=== PATIENT | female | born 1975 | race Caucasian/White ===

== ENCOUNTER 2018-05-19 09:49 | Emergency (ER) | payer BC, SELFPAY ==
[2018-05-19 09:50] VITALS: BP 127/92; PULSE 81; RESP 18; TEMP 36.9; O2SAT 100; BMI 29.1
--- NOTE | 2018-05-19 10:03 | ED.RN ---
Addendum entered by Lia Marc 05/19/18 10:05: Original Note: on continuos control fof years. stopped in mar. intermittent light bleeding until 6 days ago started heavy bleeding with clots. consistently bleeding since changing pad every 2-3 hours
[2018-05-19 10:29] VITALS: BP 105/78; BP 109/69; BP 111/72; PULSE 68; PULSE 72; PULSE 76
[2018-05-19] MEDS: 0.9% Normal Saline 1,000 ML 1000 ML IV (10:34)
[2018-05-19 10:39] LABS: Absolute Lymphocyte Count 2.09 X10^3/ul (0.83-4.51); Absolute Neutrophil Count 3.8 X10^3/uL (2.0-7.7); Basophil# 0.03 X10^3/uL; Basophil% 0.4 % (0-1); Eosinophil# 0.33 X10^3/uL; Eosinophils% 4.9 % (0-5); Hematocrit 38.1 % (37-47); Hemoglobin 13.1 g/dl (12.0-15.0); Lymphocyte # 2.09 X10^3/ul (4.0); Lymphocyte % 30.8 % (19-41); Mean Corp Hgb Conc 34.4 g/gl (32-36); Mean Corpuscular Hgb 31.9 pg (27.0-32.0); Mean Corpuscular Volume 92.7 fL (81-99); Mean Platelet Vol. 9.2 fl (6.2-12.0); Monocyte# 0.48 X10^3/uL; Monocyte% 7.1 % (0-10); Neutrophil # 3.84 X10^3/uL (2.7-7.7); Neutrophil % 56.7 % (47-70); Platelet Count 236 K/mm3 (150-450); RBC Distribution Width CV 12.2 % (11.6-14.6); RBC Distribution Width SD 40.4 fl (35.1-43.9); Red Blood Count 4.11 M/mm3 (4.2-5.4); White Blood Count 6.8 K/mm3 (4.4-11.0)
[2018-05-19 10:40] LABS: POSITIVE COUNT NO; POSITIVE DIFFERENTIAL NO; POSITIVE MORPHOLOGY NO
[2018-05-19 11:03] LABS: Pregnancy, Serum, hCG Quali. NEGATIVE Negative (0-9 Nonpreg)
--- NOTE | 2018-05-19 11:13 | ED.VISSUMM ---
- ER Visit Summary Date of Service: 05/19/18 Chief Complaint: [Vaginal bleeding] History of Present Illness: The patient is a 42 F [presents the emergency department with vaginal bleeding for approximately 1 week. Patient states that she stopped taking her control in March which she had been on chronically. Patient states initially when she started bleeding a week ago was going for about a pad an hour and now she is going through a pad every 2-3 hours. Patient's passing some small clots. She denies any abdominal pain. She denies any dizziness. She denies weakness. Patient is . She denies recent illness. She denies urinary symptoms. Patient has an appointment with her LOCK TENDER but not till next week.] Physical Examination: [HEENT-PERRLA, EOMI. Cranial nerves II through XII grossly intact. TMs clear. Mucous membranes moist. No adenopathy. Cardiovascular-regular rate and rhythm without murmur or ectopy Lungs-clear to auscultation, chest wall stable without crepitus or subcu emphysema Abdomen-normoactive bowel sounds, soft, nontender, no rebound or rigidity, no peritoneal signs. Extremities-intact ?4, normal range of motion, normal pulses, atraumatic] Test Results: [Orthostatic vital signs were negative. CBC with differential was normal. HCG was negative.] Emergency Department Course and Treatment: [Patient received normal saline.] Treatment Plan: [Case was discussed with Dr.Steven Angel who asked that we start patient on Aygestin 5 mg twice daily for 1 month and have patient follow-up with his office] Disposition: [Discharged home in stable condition] Impression: [Dysfunctional uterine bleeding] This note was generated with [employer] dictation software. It may contain incorrect words, spelling, and punctuation that were not noted in review of the chart prior to signing ED Disposition - Plan for ED Patient: Chief Complaint: Vag Bleeding Referrals: Care Physician,No Primary [Primary Care Provider] -
--- NOTE | 2018-05-19 11:18 | ED.DCSUM_ITS ---
- ER Visit Summary Date of Service: 05/19/18 Chief Complaint: [Vaginal bleeding] History of Present Illness: The patient is a 42 F [presents the emergency department with vaginal bleeding for approximately 1 week. Patient states that she stopped taking her control in March which she had been on chr onically. Patient states initially when she started bleeding a week ago was going for about a pad an hour and now she is going through a pad every 2-3 hours. Patient's passing some small clots. She denies any abdominal pain. She denies any dizziness. She denies weakness. Patient is . She denies recent illness. She denies urinary symptoms. Patient has an appointment with her LAWN CARE SPECIALIST but not till next week.] Physical Examination: [HEENT-PERRLA, EOMI. Cranial nerves II through XII grossly intact. TMs clear. Mucous membranes moist. No adenopathy. Cardiovascular-regular rate and rhythm without murmur or ectopy Lungs-clear to auscultation, chest wall stable without crepitus or subcu emphysema Abdomen-normoactive bowel sounds, soft, nontender, no rebound or rigidity, no peritoneal signs. Extremities-intact ?4, normal range of motion, normal pulses, atraumatic] Test Results: [Orthostatic vital signs were negative. CBC with differential was normal. HCG was negative.] Emergency Department Course and Treatment: [Patient received normal saline.] Treatment Plan: [Case was discussed with Dr.Steven Angel who asked that we start patient on Aygestin 5 mg twice daily for 1 month and have patient follow-up with his office] Disposition: [Discharged home in stable condition] Impression: [Dysfunctional uterine bleeding] This note was generated with [employer] dictation software. It may contain incorrect words, spelling, and punctuation that were not noted in review of the chart prior to signing ED Disposition - Plan for ED Patient: Chief Complaint: Vag Bleeding Referrals: Care Physician,No Primary [Primary Care Provider] -
--- NOTE | 2018-05-19 11:20 | DCINST.ED_ITS ---
ED Disposition - Plan for ED Patient: Chief Complaint: Vag Bleeding Instructions: ED Bleed Irregular Vaginal Prescriptions: Norethindrone [Aygestin] 5 mg PO BID 5 Days #60 tab Referrals: Care Physician,No Primary [Primary Care Provider] - Additional Instructions: See your PIN DRAFTING MACHINE TENDER next week
[2018-05-19 11:34] VITALS: BP 104/59; PULSE 64; RESP 15; O2SAT 100
--- OUTSIDE RECORDS SUMMARY | 2018-07-05 12:20 | XMS RPT_ITS ---
:1975 Author Organization [facility] Care Team Providers Name Role Phone Ian Padron Admitting Unavailable Ian Padron Attending Unavailable No Doctor Assigned, Nodr Primary Care Unavailable KRZYSZTOF AGUILAR Attending Unavailable LILIANA DE LEON Referring Unavailable NO PRIMARY CARE, Primary Care Unavailable Isidro Gallagher Attending Unavailable Primay Care Physicia, No Primary Care Unavailable PROBLEMS PROBLEMS No Problem Records FoundPROCEDURES PROCEDURES No Procedure Records FoundRESULTS RESULTS DISCHARGE INSTRUCTION Observed: 05/19/2018 Status: F Source: [place] 11:20 AM [facility] REPOSITORY [facility] Medical Records Department [address] [place] [id number] Discharge Instruction 05/19/18 1118 MR#: [id number] Acct: [id number] Name: HUGO BAKER Rep #: [id number] : 1975 42 From: Isidro Gallagher DO PCP: Care Physician, No Primary Status: REG ER ED Disposition - Plan for ED Patient: Chief Complaint: Vag Bleeding Instructions: ED Bleed Irregular Vaginal Prescriptions: Norethindrone [Aygestin] 5 mg PO BID 5 Days #60 tab Referrals: Care Physician,No Primary [Primary Care Provider] - Additional Instructions: See your HEAD OF CYTOGENETICS next week What to do if you have Problems For any increased pain, shortness of breath, bleeding, nausea or vomiting, chest pain, or any unexpected problems, contact your Primary Care Provider. Call [facility] ([phone]) or report to the closest Emergency Room. Call 911 if necessary. 05/19/18 1120 <Electronically signed by Isidro Gallagher DO> Date Isidro Gallagher DO Cosigner Signature (If Indicated): Date CC: No Primary Care Physician EMERGENCY DEPARTMENT Observed: 05/19/2018 Status: F Source: [place] SUMMARY 11:18 AM [facility] REPOSITORY [facility] Medical Records Department [address] [place] [address] Emergency Department Summary 05/19/18 1113 MR#: [id number] Acct: [id number] Name: HUGO BAKER Rep #: [id number] : 1975 42 From: Isidro Gallagher DO PCP: Care Physician, No Primary Status: REG ER - ER Visit Summary Date of Service: 05/19/18 Chief Complaint: [Vaginal bleeding] History of Present Illness: The patient is a 42 F [presents the emergency department with vaginal bleeding for approximately 1 week. Patient states that she stopped taking her control in March which she had been on chronically. Patient states initially when she started bleeding a week ago was going for about a pad an hour and now she is going through a pad every 2-3 hours. Patient's passing some small clots. She denies any abdominal pain. She denies any dizziness. She denies weakness. Patient is . She denies recent illness. She denies urinary symptoms. Patient has an appointment with her HEAD OF CYTOGENETICS but not till next week.] Physical Examination: [HEENT-PERRLA, EOMI. Cranial nerves II through XII grossly intact. TMs clear. Mucous membranes moist. No adenopathy. Cardiovascular-regular rate and rhythm without murmur or ectopy Lungs-clear to auscultation, chest wall stable without crepitus or subcu emphysema Abdomen-normoactive bowel sounds, soft, nontender, no rebound or rigidity, no peritoneal signs. Extremities-intact 4, normal range of motion, normal pulses, atraumatic] Test Results: [Orthostatic vital signs were negative. CBC with differential was normal. HCG was negative.] Emergency Department Course and Treatment: [Patient received normal saline.] Treatment Plan: [Case was discussed with Dr.Steven Angel who asked that we start patient on Aygestin 5 mg twice daily for 1 month and have patient follow- up with his office] Disposition: [Discharged home in stable condition] Impression: [Dysfunctional uterine bleeding] This note was generated with [employer] software. It may contain incorrect words, spelling, and punctuation that were not noted in review of the chart prior to signing ED Disposition - Plan for ED Patient: Chief Complaint: Vag Bleeding Referrals: Care Physician,No Primary [Primary Care Provider] - What to do if you have Problems For any increased pain, shortness of breath, bleeding, nausea or vomiting, chest pain, or any unexpected problems, contact your Primary Care Provider. Call [facility] ([phone]) or report to the closest Emergency Room. Call 911 if necessary. 05/19/18 1118 <Electronically signed by Isidro Gallagher DO> Date Isidro Gallagher DO Cosigner Signature (If Indicated): Date CC: No Primary Care Physician CBC W/DIFF, AUTOMATED Collected: 05/19/2018 Status: F Source: [place] 10:15 AM [facility] REPOSITORY TYPE CODE TESTS RESULT OUT OF RANGE REFERENCE UNITS LAB L100.1000 4.4-11.0 K/mm3 Normal WBC 6.8 LAB L100.1200 4.2-5.4 M/mm3 Low RBC 4.11 LAB L100.1300 12.0-15.0 g/dl Normal HGB 13.1 LAB L100.1400 37-47 % Normal HCT 38.1 LAB L100.1500 81-99 fL Normal MCV 92.7 LAB L100.1600 27.0-32.0 pg Normal MCH 31.9 LAB L100.1700 32-36 g/gl Normal MCHC 34.4 LAB L100.1810 11.6-14.6 % Normal RDW CV 12.2 LAB L100.1820 35.1-43.9 fl Normal RDW SD 40.4 LAB L100.1900 150-450 K/mm3 Normal PLT 236 LAB L100.2000 6.2-12.0 fl Normal MPV 9.2 LAB L100.2100 47-70 % Normal NEUT% 56.7 LAB L100.2200 19-41 % Normal LY% 30.8 LAB L100.2300 0-10 % Normal MONO% 7.1 LAB L100.2400 0-5 % Normal EO% 4.9 LAB L100.2500 0-1 % Normal BASO% 0.4 LAB L100.2550 0.0-0.9 % Normal IM GRAN % 0.100 Result Comment: IG% - Immature Granulocytes (promyelocytes, myelocytes and metamyelocytes) > 1% indicates that a LEFT SHIFT is Present. LAB L100.2620 2.0-7.7 X10 3/uL Normal Absolute Neut 3.8 LAB L100.2720 0.83-4.51 X10 3/ul Normal Absolute Lymph 2.09 Performed By: #### L100.0100 #### [facility] [address] [place], [address] ,SERUM,HCG QUALI. Collected: Status: F Source: [place] 05/19/2018 10:15 AM [facility] REPOSITORY TYPE CODE TESTS RESULT OUT OF REFERENCE UNITS RANGE LAB L700.7000 0-9 Nonpreg Negative Normal HCGSQUAL NEGATIVE LAB L700.6700 =>Qualitative mIU/mL Normal HCG Qual < 1 triggr Performed By: #### L700.6800 #### [facility] [address] [place], [address] TYPE AND SCREEN Collected: 05/19/2018 Status: F Source: [place] 10:15 AM [facility] REPOSITORY Order Comment: Reason for Type AND Screen/Red Cells: HEMORRHAGE, VAGINAL TYPE CODE TESTS RESULT OUT OF RANGE REFERENCE UNITS LAB B10.0800 O Normal BLOOD TYPE GEL POSITIVE LAB B100.4000 Normal Antibody NEGATIVE Screen Performed By: #### B101.7450 #### [facility] [address] [place], [address] ALLERGIES ALLERGIES DATE TYPE / CODE NAME / CODE REACTION SEVERITY SOURCE 05/19/2018 Drug No Known Unknown [facility] Allergy/4160 Allergies/F00 [facility] [address]608(SNOMED [id number](RXNOR Repository CT) M) ENCOUNTERS ENCOUNTERS ADMIT/DISCHARGE ACCOUNT NUMBER ADMITTING ENCOUNTER LOCATION SOURCE CLASS 05/26/2018 [id number] Ambulatory Building:[facility] Repository 05/19/2018/05/19/20 [id number] Emergency [address] ding:ED Repository 02/01/2018/02/02/20 [id number] Ian Padron Ambulatory [place] [id number] [place] g:[facility] Repository PAYERS PAYERS ENCOUNTER GUARANTOR PAYER SUBSCRIBER SOURCE 05/26/2018 HUGO Primary HUGO [facility] HILDEBRANDDOB: Insurance:ANTHEMPolic HILDEBRANDDOB: Hospital [id number] y Number: [id number] Repository [facility] [id number] [place], [place] Date: [place], [place] [address]Sqj: [phone] (HP) 05/19/2018 HUGO L Primary HUGO L [place] [id number] Insurance:ANTHEMPolic [facility] y [place]: [id number] [id number] Repository [address]Ymb: [phone]) Date:[id number] [phone] (HP) [address] [place] [address]OE: 05/19/2018 Secondary NOT GIVENUNK [place] Insurance:SELF PAY [facility] Number: Effective Repository Date:2018-05-19
== END 2018-05-19 11:35 | disposition home or self-care (01) ==
LOC: ED 10:28
PROVIDERS: Emergency Provider Emergency Medicine
DX: N93.8 Other specified abnormal uterine and vaginal bleeding (principal)
CPT/HCPCS: 84703; 85025; 86850; 86900; 96360; 99284; J7030; A4216